=== PATIENT | male | born 1990 | race Caucasian/White ===

== ENCOUNTER 2024-11-11 08:24 | Day surgery (SDC) | payer OTHER ==
[~2024-11-11] VITALS: Ht 170.2 cm; Wt 86.8 kg
[2024-11-11] VITALS (10 sets, daily range): BP systolic 116–179; BP diastolic 72–162
[~2024-11-11 08:24] MED LIST: Benzocaine Oral Spray 0.5ML UD ONE; LORA.5 PO; LORA1 PO; Lactated Ringer's 1,000 ML IV SCH; OXYACE5T PO
--- NOTE | 2024-11-11 08:54 | NUR ---
History, Chart, Medications and Allergies reviewed before start of procedure. Patient confirms NPO status and agrees with scheduled surgery. Pre-Op teaching done. Pt verbalizes understanding. Patient States Post-Procedure ride home has been arranged. Lungs clear T/O to Auscultation.
[2024-11-11] MEDS ORDERED: Midazolam HCl 1MG / ML 2ML Vial ONE (09:01)
[2024-11-11] MEDS ORDERED: propofoL 20 ML IV ONE (09:01)
--- NOTE | 2024-11-11 09:21 | NUR ---
11/11/24 0921 Oumar Osborn CONFIRMED AND REVIEWED H&P, MEDCICATIONS, ALLERGIES, MEDICAL HISTORY, RESPIRATORY HISTORY, VITAL SIGNS, 3-LEAD EKG, CONSENTS, AND PHYSICIAN ORDERS. PATIENT CONFIRMS NPO STATUS AND AGREES WITH SCHEDULED PROCEDURE. MONITOR INTACT WITH CONTINUOUS PULSE OXIMETRY, CAPNOGRAPHY, 3-LEAD EKG, INTERMITTENT BP. SUPPLEMENTAL O2 TO BE TITRATED THROUGHOUT PROCEDURE TO MAINTAIN O2 SATURATION ABOVE 90%. PATIENT DETERMINED TO BE ASA APPROPRIATE FOR PROPOFOL SEDATION PRIOR TO START OF PROCEDURE BY DR. BEAL
--- NOTE | 2024-11-11 09:53 | NUR ---
Patient up to Ambulate independently. Gait steady. VSS AND CONSISTENT WITH PT BASELINE. PT ANTONIO PO FLUIDS. PT HAS NO COMPLAINTS AND VERBALIZES READINESS TO GO HOME. Discharge instructions reviewed with patient. Patient verbalizes understanding. Copy given to patient to take home. Patient States Post-Procedure ride home has been arranged. Discharged via wheelchair to private car for ride home. PT BELONGINGS RETURNED TO PT.
== END 2024-11-11 09:54 | disposition home or self-care (01) ==
LOC: ORSCMMR 08:24 → ORD 09:30 → ORSCMMR 09:54
PROVIDERS: Internal Medicine Gastroenterology
PROC: 0DB58ZX Excision of Esophagus, Via Natural or Artificial Opening Endoscopic, Diagnostic (ICD-10-PCS; principal; 2024-11-11 09:30)
PROC: 0DB48ZX Excision of Esophagogastric Junction, Via Natural or Artificial Opening Endoscopic, Diagnostic (ICD-10-PCS; principal; 2024-11-11 09:30)
DX: R13.10 Dysphagia, unspecified (principal); R10.13 Epigastric pain; Z80.0 Family history of malignant neoplasm of digestive organs
CPT/HCPCS: 88305; 88312; A9270; J2250; J2704; J7120